=== PATIENT | male | born 1980 | race Caucasian/White ===

== ENCOUNTER 2017-07-13 10:14 | Emergency (ER) | payer OTHER, SELFPAY ==
[2017-07-13 10:15] VITALS: BMI 29.2
[2017-07-13 10:33] VITALS: BP 145/84; PULSE 82; RESP 16; TEMP 98; O2SAT 98
--- NOTE | 2017-07-13 11:00 | ED PDOC ---
HPI: Abdomen <Preethi Addison - Last Filed: 07/13/17 13:13> History Per: Patient History/Exam Limitations: no limitations Onset/Duration Of Symptoms: Days Outside of [place] travel?: No Current Symptoms Are (Timing): Still Present Severity: Mild Pain Scale Rating Of: 3 Location Of Pain/Discomfort: RUQ, LUQ, Periumbilical Quality Of Discomfort: Burning, Pressure Associated Symptoms: Fever (Measured at PCP this AM 100.0) Exacerbating Factors: None Alleviating Factors: None Last Bowel Movement: Yesterday <Taisha Pettit - Last Filed: 07/13/17 14:31> Time Seen by Provider: 07/13/17 10:30 Chief Complaint (Nursing): Abdominal Pain Additional Complaint(s): 36 YO Male with no sig PMH presents to [facility] ED for abdominal pain. Pt was seen by his PCP this AM who sent the pt to the ER for concerns of appendicitis. Per pt, pain started 2 weeks ago, suddenly and is rated as a 3-4/10. There is no radiation of the pain, and it has been consistent in the past two weeks. No alleviating or exacerbating factors. Pt has tried Pepcid and pepto bismol at home without any relief. No changes in diet, pt is eating 3x a day. Pt denies fever, although he does mention this AM his pcp told him he had a fever of 100.0. Denies n/v/c/d, dysuria, urinary frequency. (Taisha Pettit) Supervising Attending Note - Supervising Attending Note The Documented history was done by the: Physician Chairman And Chief Executive Officer The documented physical exam was done by the: Physician Chairman And Chief Executive Officer, Attending Physician - Attestation: I have personally seen and examined this patient.: Yes I have fully participated in the care of the patient.: Yes I have reviewed all pertinent clinical information: Yes <Preethi Addison - Last Filed: 07/13/17 13:13> Past Medical History <Preethi Addison - Last Filed: 07/13/17 13:13> Reviewed: Historical Data, Nursing Documentation, Vital Signs - Medical History PMH: Denies: Chronic Kidney Disease - Surgical History Other surgeries: L knee surgery - Family History Family History: States: No Known Family Hx - Living Arrangements Living Arrangements: Alone - Social History Current smoker - smoking cessation education provided: Yes (2-3 cigarettes a day x 8 yrs ) Alcohol: Other (15-20 beers on Saturday night) Drugs: Denies <Taisha Pettit - Last Filed: 07/13/17 14:31> Vital Signs: Last Vital Signs Temp 98 F 07/13/17 10:30 Pulse 82 07/13/17 10:30 Resp 16 07/13/17 10:30 BP 145/84 07/13/17 10:30 Pulse Ox 98 07/13/17 13:28 - Home Medications Home Medications: Ambulatory Orders Medication Instructions Recorded No Known Home Med 07/22/15 - Allergies Allergies/Adverse Reactions: Allergies Allergy/AdvReac Type Severity Reaction Status Date / Time No Known Allergies Allergy Verified 07/13/17 10:30 Review of Systems ROS Statement: Except As Marked, All Systems Reviewed And Found Negative Constitutional: Negative for: Fever, Chills, Sweats Gastrointestinal: Positive for: Abdominal Pain (RUQ, LUQ and periumbilical). Negative for: Nausea, Vomiting, Diarrhea, Constipation Genitourinary Male: Negative for: Dysuria, Frequency <Taisha Pettit Last Filed: 07/13/17 14:31> Physical Exam - Reviewed Nursing Documentation Reviewed: Yes Vital Signs Reviewed: Yes - Physical Exam Appears: Positive for: Well, Non-toxic, No Acute Distress Head Exam: Positive for: ATRAUMATIC, NORMAL INSPECTION, NORMOCEPHALIC Skin: Positive for: Normal Color, Warm, DRY Eye Exam: Positive for: EOMI, Normal appearance, PERRL ENT: Positive for: Normal ENT Inspection Neck: Positive for: Normal, Painless ROM Cardiovascular/Chest: Positive for: Regular Rate, Rhythm Respiratory: Positive for: CNT, Normal Breath Sounds Gastrointestinal/Abdominal: Positive for: Bowel Sounds, Soft, Tenderness. Negative for: Mass, Distended, Guarding (Tenderness to palpation of the LLQ, RLQ. Leslie's sign neg. Rebound neg, obturator neg, psoas neg in L side illicited pain in the R periumbillical area.) Back: Positive for: Normal Inspection. Negative for: L CVA Tenderness, R CVA Tenderness Extremity: Positive for: Normal ROM Neurologic/Psych: Positive for: Alert, Oriented <HodanTaisha - Last Filed: 07/13/17 14:31> - Laboratory Results Result Diagrams: 07/13/17 11:00 07/13/17 11:00 <Preethi Addison - Last Filed: 07/13/17 13:13> - Laboratory Results Result Diagrams: 07/13/17 11:00 07/13/17 11:00 - ECG O2 Sat by Pulse Oximetry: 98 <Taisha Pettit - Last Filed: 07/13/17 14:31> - Progress ED Course And Treament: Pt is in NAD, he looks comfortable. Management was discussed with patient and he agrees with plan. UA appreciated, found wnl. CBC, CMP wnl. CT abdomen with IV contrast appreciated, likely hepatic steatosis, appendicitis is ruled out. Spoke to pt about the results, pt agree with plan to go home with follow up with pcp (Taisha Pettit) Disposition <Preethi Addison - Last Filed: 07/13/17 13:13> - Disposition Disposition: Routine/Home Disposition Time: 13:26 <Taisha Pettit - Last Filed: 07/13/17 14:31> - Clinical Impression Clinical Impression: Abdominal pain - Disposition Condition: GOOD Additional Instructions: Please return to ED if pain persists or worsens Follow up with PCP Instructions: Gas and Bloating (ED), Abdominal Pain (ED) Forms: [employer] (Armenian)
[2017-07-13 11:21] LABS: BASO % 0.6 % (0.0-2.0); EOS # 0.2 K/uL (0.0-0.7); EOS % 2.7 % (0.0-4.0); HEMATOCRIT 46.6 % (35.0-51.0); LYMPH # 1.9 K/uL (1.0-4.3); LYMPH % 22.8 % (20.0-40.0); MEAN CELL VOLUME 91.7 fl (80.0-94.0); MEAN CORPUSCULAR HEMOGLOBIN 30.4 pg (27.0-31.0); MEAN CORPUSCULAR HGB CONC 33.2 g/dL (33.0-37.0); MEAN PLATELET VOLUME 7.1 fl (7.2-11.7); MONO # 0.6 K/uL (0.0-0.8); MONO % 7.5 % (0.0-10.0); NEUT # 5.5 K/uL (1.8-7.0); NEUT % 66.4 % (50.0-75.0); NRBC % 0.1 % (0.0-0.0); RED CELL DISTRIBUTION WIDTH 12.7 % (11.5-14.5); WHITE BLOOD COUNT 8.3 K/uL (4.8-10.8)
[2017-07-13 11:35] LABS: ALB/GLOB RATIO 1.2 (1.0-2.1); ALKALINE PHOSPHATASE 105 U/L (38-126); ALT/SGPT 38 U/L (21-72); AST/SGOT 31 U/L (17-59); BILIRUBIN,TOTAL 0.3 mg/dl (0.2-1.3); BLOOD UREA NITROGEN 16 mg/dl (9-20); CALCIUM 9.5 mg/dL (8.4-10.2); CARBON DIOXIDE 26 mmol/L (22-30); CHLORIDE 104 mmol/L (98-107); GFR AFRICAN-AMERICAN > 60; GLUCOSE,RANDOM 107 mg/dL (75-110); POTASSIUM 4.4 MMOL/L (3.6-5.0); SODIUM 145 mmol/l (132-148); TOTAL PROTEIN 8.8 G/DL (6.3-8.2)
[2017-07-13] MEDS ORDERED: Iohexol 300 100 ML IJ ONE (12:27)
[2017-07-13] MEDS ORDERED: Sodium Chloride 0.9% 50 ML IV ONE (12:28)
--- NOTE | 2017-07-13 13:08 | CT ---
PROCEDURE: CT Abdomen and Pelvis with contrast HISTORY: R/O appendicitis COMPARISON: None available. TECHNIQUE: Contrast dose: 95 cc Omnipaque 300 Radiation dose: Total exam DLP = 1233.42 mGy-cm. This CT exam was performed using one or more of the following dose reduction techniques: Automated exposure control, adjustment of the mA and/or kV according to patient size, and/or use of iterative reconstruction technique. FINDINGS: LOWER THORAX: Mild bibasilar atelectasis. No visible pleural effusion or pneumothorax. LIVER: Hypoattenuation of the liver compatible with hepatic steatosis. GALLBLADDER AND BILE DUCTS: Unremarkable. PANCREAS: Unremarkable. SPLEEN: Unremarkable. ADRENALS: Unremarkable. KIDNEYS AND URETERS: The kidneys enhance symmetrically. No hydronephrosis or obstructing calculus identified. VASCULATURE: No aortic aneurysm. BOWEL: Stomach is nondistended. Lack of oral contrast limits evaluation for bowel pathology. Bowel loops appear within normal limits of caliber without evidence of obstruction. APPENDIX: The appendix appears within normal limits of caliber. No secondary signs of acute appendicitis. PERITONEUM: No significant free fluid. LYMPH NODES: No bulky adenopathy identified. BLADDER: Unremarkable. REPRODUCTIVE: Unremarkable. BONES: No acute osseous abnormality is detected. OTHER FINDINGS: None. IMPRESSION: Bibasilar atelectasis. Hypoattenuation of the liver compatible with hepatic steatosis. The appendix appears within normal limits of caliber. No secondary signs of acute appendicitis.
== END 2017-07-13 14:34 | disposition home or self-care (01) ==
LOC: H.ER 10:14
DX: R10.31 Right lower quadrant pain (principal); R14.0 Abdominal distension (gaseous)
CPT/HCPCS: 74177; 80053; 85025; 99282; Q9967